=== PATIENT | male | born 1960 | race Hispanic/Latino ===

== ENCOUNTER 2020-12-18 11:51 | Day surgery (SDC) | payer BC ==
[2020-12-14 13:55] VITALS: BP 155/81
[2020-12-18] VITALS (13 sets, daily range): BP systolic 113–148; BP diastolic 61–92
[~2020-12-18] VITALS: Ht 162.6 cm; Wt 97.6 kg
[~2020-12-18 11:51] MED LIST: AEC81 PO; AMLO-257 PO; ATOR10 PO; MULT-1289 PO; NEBI5TAB8 PO; OMEP40CA21 PO; RAMI10CA69 PO; TADA5TAB PO
[2020-12-18] MEDS: CEFTRIAXONE 1G VIAL IVP SCH ×2 (12:50→17:45)
[2020-12-18] MEDS ORDERED: LACTATED RINGERS 1000ML 1,000 ML IV ONE (13:06)
[2020-12-18] MEDS ORDERED: LIDOCAINE PF 100MG/5ML (2%) SYRINGE 5ML ONE (17:36)
[2020-12-18] MEDS ORDERED: PROPOFOL 10 MG/ML 20ML VIAL IV ONE (17:37)
[2020-12-18] MEDS ORDERED: FENTANYL CITRATE PF 50 MCG/1 ML 2ML VIAL ONE (17:37)
[2020-12-18] MEDS ORDERED: GLYCOPYRROLATE 1 MG/5 ML SYRINGE ONE (17:53)
[2020-12-18] MEDS ORDERED: METOCLOPRAMIDE 10 MG/2 ML VIAL ONE (18:56)
== END 2020-12-18 20:25 | disposition home or self-care (01) ==
LOC: DAH 11:51
PROVIDERS: ATTEND Urology
DX: N20.0 Calculus of kidney (principal); Z20.822 Contact with and (suspected) exposure to COVID-19; I10 Essential (primary) hypertension; K21.9 Gastro-esophageal reflux disease without esophagitis; Z88.3 Allergy status to other anti-infective agents; Z91.041 Radiographic dye allergy status; Z88.6 Allergy status to analgesic agent; Z79.899 Other long term (current) drug therapy; Z98.890 Other specified postprocedural states; Z80.42 Family history of malignant neoplasm of prostate
CPT/HCPCS: 50590; 87635; A4215; A4221; A4222; A4223; A4510; A4600; A4663; A6260; C9803; J0696; J2001; J2704; J2765; J3010; J3490; J7120 ×2

== ENCOUNTER → 2021-02-12 | Outpatient (CLI) | payer BC | END | disposition home or self-care (01) | LOC: RAH 09:10 | PROVIDERS: ATTEND Urology | DX: N20.0 Calculus of kidney (principal) | CPT/HCPCS: 74018 ==